=== PATIENT | female | born 1985 | race Caucasian/White ===

== ENCOUNTER 2019-07-25 11:48 | Emergency (ER) | payer BC ==
[2019-07-25 12:00] VITALS: BP 155/90; PULSE 77
[2019-07-25] MEDS ORDERED: Famotidine 20 MG/2 ML SDV IVPUSH ONE (12:25)
[2019-07-25] MEDS ORDERED: Sodium Chloride 0.9% 10 ML Syringe FLUSH PRN (12:25)
[2019-07-25] MEDS ORDERED: diphenhydrAMINE 50 MG/ML SDV IVPUSH ONE (12:25)
[2019-07-25] MEDS ORDERED: Sodium Chloride 0.9% 1,000 ML IV ONE (12:25)
[2019-07-25] MEDS ORDERED: methylPREDNISolone Sodium Succinate 125 MG/2 ML SDV IVPUSH ONE (12:25)
--- NOTE | 2019-07-25 12:47 | EDM.PDOC ---
<JacklynJaylyn acuna - Last Filed: 07/25/19 12:41> ED HPI GENERAL MEDICAL PROBLEM - General Chief Complaint: Allergic Reaction Stated Complaint: ALLERGIC REACTION Time Seen by Provider: 07/25/19 12:24 Source of Information: Reports: Patient History Limitations: Reports: No Limitations - History of Present Illness INITIAL COMMENTS - FREE TEXT/NARRATIVE: Ayala is a pleasant 34 year old female who presents to the ED following an episode of anaphylactic shock in which her epinephrine autoinjector was given. Patient reports she was getting her bridge checked at her dentist when she started becoming short of breathing and experiencing dyspnea. She has a known allergy to latex and states that her dentist uses latex gloves. She was given her epi pen by the dental staff and also took 50 mg of diphenhydramine PO. On arrival at the ED her she had no airway restrictions, her only complaints being severe itching and hives. She does have an extensive allergy list and states she used to have anaphylactic reactions quite frequently but it has been 2-3 years since she has experienced one. 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 (see below) (epinephrine autoinjector, benadryl PO ) - Related Data Allergies Allergy/AdvReac Type Severity Reaction Status Date / Time amoxicillin Allergy Anaphylactic Verified 07/25/19 12:00 Shock banana Allergy Facial Verified 07/25/19 12:00 Swelling clarithromycin [From Biaxin] Allergy Anaphylactic Verified 07/25/19 12:00 Shock kiwi Allergy Itching Verified 07/25/19 12:00 latex Allergy Rash Verified 07/25/19 12:00 rainer Allergy Rash Verified 07/25/19 12:00 melon Allergy Rash Verified 07/25/19 12:00 minocycline [Minocycline] Allergy Anaphylactic Verified 07/25/19 12:00 Shock NSAIDS (Non-Steroidal Allergy Anaphylactic Verified 07/25/19 12:00 Anti-Inflamma Shock peanut Allergy Anaphylactic Verified 07/25/19 12:00 Shock Penicillins Allergy Anaphylactic Verified 07/25/19 12:00 Shock Sulfa (Sulfonamide Allergy Anaphylactic Verified 07/25/19 12:00 Antibiotics) Shock Home Meds: Home Meds Cetirizine [ZyrTEC] 10 mg PO DAILY PRN 03/17/14 [History] Montelukast [Singulair] 10 mg PO BEDTIME 03/17/14 [History] Albuterol [Ventolin HFA] 2 puff INH Q4H PRN 10/07/14 [History] EPINEPHrine [Epipen] 0.3 mg IM ASDIRECTED PRN 10/07/14 [History] Fluticasone/Salmeterol [Advair 250-50] 1 puff INH BID 10/07/14 [History] Multivitamin with Minerals [Multiple Vitamin] 1 tab PO DAILY 06/18/15 [History] Dexlansoprazole [Dexilant] 1 tab PO DAILY 08/17/16 [History] Acetaminophen [Tylenol] 2 tab PO Q4H PRN 11/05/16 [History] Ranitidine HCl [Zantac 75] 1 tab PO DAILY PRN 11/05/16 [History] diphenhydrAMINE [Benadryl] 25 mg PO TID PRN 11/05/16 [History] Acetaminophen/oxyCODONE [Percocet 325-5 MG] 1 tab PO Q4H #20 tablet 11/09/16 [Rx ] predniSONE [Prednisone] 20 mg PO ASDIRECTED #15 tablet 07/25/19 [Rx] Past Medical History HEENT History: Reports: Allergic Rhinitis Other HEENT History: wears glasses Cardiovascular History: Reports: None Respiratory History: Reports: Asthma Other Respiratory History: allergy induced Gastrointestinal History: Reports: GERD Other Gastrointestinal History: ABdominal pain, bloating, indigestion, "if med not taken in a.m. 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: , Other (See Below) Musculoskeletal History: Reports: Arthritis Other Musculoskeletal History: hands, right knee Neurological History: Reports: Other (See Below) Other Neuro History: hx of motion sickness Psychiatric History: Reports: Anxiety, Depression Endocrine/Metabolic History: Reports: Obesity/BMI 30+ Hematologic History: Reports: None Immunologic History: Reports: None Oncologic (Cancer) History: Reports: None Dermatologic History: Reports: Other (See Below) (allergic dermatitis) Other Dermatologic History: acne - Past Surgical History Head Surgeries/Procedures: Reports: None HEENT Surgical History: Reports: Oral Surgery Cardiovascular Surgical History: Reports: None Respiratory Surgical History: Reports: None GI Surgical History: Reports: EGD Female Surgical History: Reports: Section, Tubal Ligation Endocrine Surgical History: Reports: None Musculoskeletal Surgical History: Reports: Knee Replacement, Other (See Below) Social & Family History - Tobacco Use Smoking Status *Q: Never Smoker - Recreational Drug Use Recreational Drug Use: No ED ROS ALLERGIC REACTION - Review of Systems Review Of Systems: See Below Constitutional: Reports: No Symptoms HEENT: Reports: No Symptoms Respiratory: Reports: No Symptoms Cardiovascular: Reports: No Symptoms Endocrine: Reports: No Symptoms GI/Abdominal: Reports: No Symptoms : Reports: No Symptoms Musculoskeletal: Reports: No Symptoms Skin: Reports: Urticaria, Other (excoriations ) Neurological: Reports: No Symptoms Psychiatric: Reports: No Symptoms Hematologic/Lymphatic: Reports: No Symptoms Immunologic: Reports: Anaphylaxis ED EXAM GENERAL NO PERIP PULSE - Physical Exam Exam Limited By: No Limitations General Appearance: Alert, WD/WN, No Apparent Distress Ears: Normal External Exam, Normal Canal, Hearing Grossly Normal, Normal TMs Nose: Normal Inspection, Normal Mucosa, No Blood Throat/Mouth: Normal Inspection, Normal Lips, Normal Teeth, Normal Gums, Normal Oropharynx, Normal Voice, No Airway Compromise Head: Atraumatic, Normocephalic Neck: Normal Inspection, Supple, Non-Tender, Full Range of Motion Respiratory/Chest: No Respiratory Distress, Lungs Clear, Normal Breath Sounds, No Accessory Muscle Use, Chest Non-Tender Cardiovascular: Normal Peripheral Pulses, Regular Rate, Rhythm, No Edema, No Gallop, No JVD, No Murmur, No Rub GI/Abdominal: Normal Bowel Sounds, Soft, Non-Tender, No Organomegaly, No Distention, No Abnormal Bruit, No Mass Back Exam: Normal Inspection, Full Range of Motion, NT Extremities: Normal Inspection, Normal Range of Motion, Non-Tender, No Pedal Edema, Normal Capillary Refill, Other (urticaria ) Neurological: Alert, Oriented, CN II-XII Intact, Normal Cognition, Normal Gait, Normal Reflexes, No Motor/Sensory Deficits Psychiatric: Normal Affect, Normal Mood Skin Exam: Warm, Dry, Rash (maculopapular rash on trunk, bilateral arms and legs , pruritis, excoriations ) Course - Vital Signs Last Recorded V/S: Last Vital Signs Temp 98.1 F 07/25/19 11:58 Pulse 77 07/25/19 11:58 Resp 16 07/25/19 11:58 BP 155/90 H 07/25/19 11:58 Pulse Ox 99 07/25/19 11:58 - Orders/Labs/Meds Orders: Active Orders 24 hr Category Date Time Status Peripheral IV Care [RC] . DIRECTED Care 07/25/19 12:25 Active Peripheral IV Insertion Adult [OM.PC] Stat Oth 07/25/19 12:25 Ordered Meds: Medications Discontinued Medications Generic Name Dose Route Start Last Admin Trade Name Freq PRN Reason Stop Dose Admin Diphenhydramine HCl 50 mg 07/25/19 12:25 07/25/19 12:41 Benadryl IVPUSH 07/25/19 12:26 50 mg ONETIME ONE Administration Famotidine 20 mg 07/25/19 12:25 07/25/19 12:44 Pepcid IVPUSH 07/25/19 12:26 20 mg ONETIME ONE Administration Sodium Chloride 1,000 mls @ 500 mls/hr 07/25/19 12:25 07/25/19 12:41 Normal Saline IV 07/25/19 14:24 500 mls/hr ONETIME ONE Administration Methylprednisolone Sodium Succinate 125 mg 07/25/19 12:25 07/25/19 12:47 Solu-Medrol IVPUSH 07/25/19 12:26 125 mg ONETIME ONE Administration Sodium Chloride 10 ml 07/25/19 12:25 07/25/19 12:46 Saline Flush FLUSH 10 ml ASDIRECTED PRN Administration Keep Vein Open Departure - Departure Disposition: Home, Self-Care 01 Clinical Impression: Allergic reaction to latex Qualifiers: Encounter type: initial encounter Injury intent: accidental or unintentional Qualified Code(s): T65.811A - Toxic effect of latex, accidental (unintentional) , initial encounter - Discharge Information Prescriptions: predniSONE [Prednisone] 20 mg PO ASDIRECTED #15 tablet Instructions: Anaphylactic Reaction, Adult Referrals: PCP,None [Primary Care Provider] - Forms: ED Department Discharge Additional Instructions: You were evaluated in the ER today for your allergic reaction. You were given IV fluids, IV Benadryl, IV steroids, and PO Pepcid for management. This did seem to help relieve most your symptoms. You will be sent home on a burst of prednisone, please take as directed, recommend that you take Benadryl every 4 hours for the next day or so, you may continue to take your Protonix as previously directed, or may take Pepcid for the next couple days to help relief of symptoms as well. Please return to the ED if your symptoms change or worsen - My Orders Last 24 Hours: My Active Orders 07/25/19 12:25 Peripheral IV Care [RC] . DIRECTED Peripheral IV Insertion Adult [OM.PC] Stat - Assessment/Plan Last 24 Hours: My Active Orders 07/25/19 12:25 Peripheral IV Care [RC] . DIRECTED Peripheral IV Insertion Adult [OM.PC] Stat <Florina Solorio - Last Filed: 07/25/19 21:34> ED HPI GENERAL MEDICAL PROBLEM - History of Present Illness INITIAL COMMENTS - FREE TEXT/NARRATIVE: I have read and reviewed the student's HPI and examined the patient and agree with HERNÁN Chavez-student. ED EXAM GENERAL NO PERIP PULSE - Physical Exam Exam: See Below Course - Re-Assessments/Exams Free Text/Narrative Re-Assessment/Exam: 07/25/19 12:32 Patient presents to the ED for the evaluation of an allergic reaction. Did order IV to be placed, with some IV fluids, 50 mg Benadryl, 20mg Pepcid IV, and 125 mg of Solu-Medrol. 07/25/19 14:10 Patient was reassessed at bedside, and states that she is feeling better, not as itchy. The hives have lessened in nature. We'll get her home on a burst of prednisone, Benadryl for the next few days, and have her follow-up with her primary care physician sometime next week. Departure - Departure Time of Disposition: 14:11 Condition: Fair - Discharge Information *PRESCRIPTION DRUG MONITORING PROGRAM REVIEWED*: No *COPY OF PRESCRIPTION DRUG MONITORING REPORT IN PATIENT ZAC: No
== END 2019-07-25 14:30 | disposition home or self-care (01) ==
LOC: JD.ED 11:48
DX: T65.811A Toxic effect of latex, accidental (unintentional), initial encounter (principal); R06.02 Shortness of breath; J45.909 Unspecified asthma, uncomplicated; K21.9 Gastro-esophageal reflux disease without esophagitis; E66.9 Obesity, unspecified; Z88.1 Allergy status to other antibiotic agents; Z91.018 Allergy to other foods; Z91.040 Latex allergy status; Z88.0 Allergy status to penicillin; Z88.6 Allergy status to analgesic agent; Z88.2 Allergy status to sulfonamides; Z79.51 Long term (current) use of inhaled steroids; Z79.899 Other long term (current) drug therapy; Z68.34 Body mass index [BMI] 34.0-34.9, adult
CPT/HCPCS: 96361; 96374; 96375; 99284; J1200; J2930; J3490; J7040

== ENCOUNTER 2021-03-06 13:10 | Emergency (ER) | payer BC ==
[2021-03-06 13:30] VITALS: BP 151/96; PULSE 78
--- NOTE | 2021-03-06 14:30 | CR ---
Chest: Portable view of the chest was obtained. Comparison: Prior chest x-ray of 03/05/21. Slight areas of increased density are seen within the left mid and lower chest. Findings are either stable or have minimally increased from prior exam. Right lung is felt to be clear. Heart size and mediastinum are normal. Bony structures are unremarkable. Impression: 1. Slight density within the left mid and lower chest which is either stable or minimally increased from prior study. 2. Nothing acute is otherwise seen. Diagnostic code #3
--- NOTE | 2021-03-06 14:52 | EDM.PDOC ---
ED HPI GENERAL MEDICAL PROBLEM - General Chief Complaint: Respiratory Problem Stated Complaint: COVID + Time Seen by Provider: 03/06/21 13:19 Source of Information: Reports: Patient History Limitations: Reports: No Limitations, Other (ED vital signs reveal a temp of 98.4, pulse of 78, respiratory rate of 13, blood pressure 151/96, pulse ox 97% on room air.) - History of Present Illness INITIAL COMMENTS - FREE TEXT/NARRATIVE: 35-year-old female presents the emergency department. She states she was diagnosed with Covid at our clinic 2 days ago. She states that she developed s ymptoms of headache and body aches 4 days ago. The symptoms continued however then she also developed cough and shortness of breath, nausea, vomiting and diarrhea. She also has decreased appetite and has lost her sense of taste and smell. She states that she feels that she is vomiting from coughing so hard because she is only able to bring up some mucus. She states she has also had fever and chills. She was diagnosed with Covid at our clinic and was also told at that time she does have pneumonia. She states she has been taking Tylenol about every 4 hours for the fever and pain. She is unable to take ibuprofen as she states she has anaphylactic reaction to this. She states she is otherwise healthy and does not take any prescription medications. Her primary care provider is Marlo Corrigan. She does admit to vaping and she quit smoking about 2 years ago. Left Chest Pain Score (Numeric/FACES): 6 - Related Data Allergies Allergy/AdvReac Type Severity Reaction Status Date / Time amoxicillin Allergy Anaphylactic Verified 03/06/21 13:20 Shock banana Allergy Facial Verified 03/06/21 13:20 Swelling clarithromycin [From Biaxin] Allergy Anaphylactic Verified 03/06/21 13:20 Shock kiwi Allergy Itching Verified 03/06/21 13:20 latex Allergy Rash Verified 03/06/21 13:20 rainer Allergy Rash Verified 03/06/21 13:20 melon Allergy Rash Verified 03/06/21 13:20 minocycline [Minocycline] Allergy Anaphylactic Verified 03/06/21 13:20 Shock NSAIDS (Non-Steroidal Allergy Anaphylactic Verified 03/06/21 13:20 Anti-Inflamma Shock peanut Allergy Anaphylactic Verified 03/06/21 13:20 Shock Penicillins Allergy Anaphylactic Verified 07/25/19 12:00 Shock Sulfa (Sulfonamide Allergy Anaphylactic Verified 07/25/19 12:00 Antibiotics) Shock Home Meds: Home Meds Cetirizine [ZyrTEC] 10 mg PO DAILY PRN 03/17/14 [History] Montelukast [Singulair] 10 mg PO BEDTIME 03/17/14 [History] Albuterol [Ventolin HFA] 2 puff INH Q4H PRN 10/07/14 [History] EPINEPHrine [Epipen] 0.3 mg IM ASDIRECTED PRN 10/07/14 [History] Fluticasone/Salmeterol [Advair 250-50] 1 puff INH BID 10/07/14 [History] Multivitamin with Minerals [Multiple Vitamin] 1 tab PO DAILY 06/18/15 [History] Acetaminophen [Tylenol] 2 tab PO Q4H PRN 11/05/16 [History] diphenhydrAMINE [Benadryl] 25 mg PO TID PRN 11/05/16 [History] Past Medical History HEENT History: Reports: Allergic Rhinitis Other HEENT History: wears glasses Cardiovascular History: Reports: None Respiratory History: Reports: Asthma Other Respiratory History: allergy induced Gastrointestinal History: Reports: GERD Other Gastrointestinal History: ABdominal pain, bloating, indigestion, "if med not taken in a.m. stomach capellan" Genitourinary History: Reports: None MAILMASTER History: Reports: , Other (See Below) Musculoskeletal History: Reports: Arthritis Other Musculoskeletal History: hands, right knee Neurological History: Reports: Other (See Below) Other Neuro History: hx of motion sickness Psychiatric History: Reports: Anxiety, Depression Endocrine/Metabolic History: Reports: Obesity/BMI 30+ Hematologic History: Reports: None Immunologic History: Reports: None Oncologic (Cancer) History: Reports: None Dermatologic History: Reports: Other (See Below) Other Dermatologic History: acne - Past Surgical History Head Surgeries/Procedures: Reports: None HEENT Surgical History: Reports: Oral Surgery Cardiovascular Surgical History: Reports: None Respiratory Surgical History: Reports: None GI Surgical History: Reports: EGD Female Surgical History: Reports: Section, Tubal Ligation Other Female Surgeries/Procedures: x 2 Endocrine Surgical History: Reports: None Neurological Surgical History: Reports: None Musculoskeletal Surgical History: Reports: Knee Replacement, Other (See Below) Other Musculoskeletal Surgeries/Procedures:: right [place] Oncologic Surgical History: Reports: None Dermatological Surgical History: Reports: None Social & Family History - Tobacco Use Tobacco Use Status *Q: Former Tobacco User Used Tobacco, but Quit: Yes Month/Year Tobacco Last Used: 2019 - Caffeine Use Caffeine Use: Reports: None - Recreational Drug Use Recreational Drug Use: No ED ROS GENERAL - Review of Systems Review Of Systems: Comprehensive ROS is negative, except as noted in HPI. ED EXAM, GENERAL - Physical Exam Exam: See Below Exam Limited By: No Limitations General Appearance: Alert, WD/WN, No Apparent Distress Ears: Normal External Exam, Hearing Grossly Normal Nose: Normal Inspection Throat/Mouth: Normal Inspection, Normal Lips, Normal Voice, No Airway Compromise Head: Atraumatic Neck: Normal Inspection, Supple Respiratory/Chest: No Respiratory Distress, Lungs Clear, Normal Breath Sounds, No Accessory Muscle Use, Chest Non-Tender Cardiovascular: Normal Peripheral Pulses, Regular Rate, Rhythm, No Edema, No Murmur Peripheral Pulses: 2+: Radial (L), Radial (R) GI/Abdominal: Normal Bowel Sounds, Soft, Non-Tender, No Distention (Female) Exam: Deferred Rectal (Female) Exam: Deferred Back Exam: Normal Inspection Extremities: Normal Inspection, Normal Range of Motion, No Pedal Edema, Normal Capillary Refill Neurological: Alert, Oriented, Normal Cognition Psychiatric: Normal Affect Skin Exam: Warm, Dry, Intact, Normal Color, No Rash Lymphatic: No Adenopathy #1 Interpretation EKG Date: 03/06/21 Time: 14:21 Rhythm: NSR Rate (Beats/Min): 67 [place]: Normal P-Wave: Present QRS: Normal ST-T: Normal QT: Normal Comparison: NA - No Prior EKG EKG Interpretation Comments: Per Dr. Goodwin interpretation: Sinus rhythm at 67 bpm; early R wave transition [id number] septal hypertrophy.; Decreased voltage limb leads Course - Vital Signs Text/Narrative:: Patient presents with complaints of Covid symptoms. States she was diagnosed 2 days ago at her clinic and also had a chest x-ray which she states showed pneumonia. She developed her symptoms approximately 4 days ago. Chief complaint is shortness of breath and cough. I have ordered a repeat chest x-ray and labs. Last Recorded V/S: Last Vital Signs Temp 98.4 F 03/06/21 13:25 Pulse 78 03/06/21 13:25 Resp 13 03/06/21 13:25 BP 151/96 H 03/06/21 13:25 Pulse Ox 97 03/06/21 13:25 - Orders/Labs/Meds Orders: Active Orders 24 hr Category Date Time Status EKG Documentation Completion [RC] STAT Care 03/06/21 13:48 Active Nurse Communication: Isolation [RC] ASDIRECTED Care 03/06/21 13:48 Active Vital Signs [RC] Q15M Care 03/06/21 16:12 Active EPINEPHrine [Adrenalin] Med 03/06/21 16:12 Active 0.3 mg IM ONETIME PRN Famotidine [Pepcid] Med 03/06/21 16:12 Active 20 mg IVPUSH ONETIME PRN Sodium Chloride 0.9% [Saline Flush] Med 03/06/21 16:15 Active 30 ml FLUSH ASDIRECTED diphenhydrAMINE [Benadryl] Med 03/06/21 16:12 Active 50 mg IVPUSH ONETIME PRN methylPREDNISolone Sod Succ [Solu-MEDROL] Med 03/06/21 16:12 Active 125 mg IVPUSH ONETIME PRN Isolation [COMM] Stat Oth 03/06/21 13:48 Ordered Medication Orders Diphenhydramine HCl (Diphenhydramine 50 Mg/Ml Sdv) 50 mg IVPUSH ONETIME PRN PRN Reason: hypersensitivity reaction Epinephrine HCl (Epinephrine 1 Mg/Ml Sdv) 0.3 mg IM ONETIME PRN PRN Reason: hypersensitivity reaction Famotidine (Famotidine 20 Mg/2 Ml Sdv) 20 mg IVPUSH ONETIME PRN PRN Reason: hypersensitivity reaction Methylprednisolone Sodium Succinate (Methylprednisolone Sodium Succinate 125 Mg/2 Ml Sdv) 125 mg IVPUSH ONETIME PRN PRN Reason: hypersensitivity reaction Sodium Chloride (Sodium Chloride 0.9% 10 Ml Syringe) 30 ml FLUSH ASDIRECTED [facility] Labs: Laboratory Tests 03/06/21 03/06/21 03/06/21 Range/Units 14:12 14:12 14:12 WBC (3.98-10.04) K/mm3 RBC (3.98-5.22) M/mm3 Hgb (11.2-15.7) gm/dl Hct (34.1-44.9) % MCV (79.4-94.8) fl MCH (25.6-32.2) pg MCHC (32.2-35.5) g/dl RDW Std Deviation (36.4-46.3) fL Plt Count (182-369) K/mm3 MPV (9.4-12.3) fl Neut % (Auto) (34.0-71.1) % Lymph % (Auto) (19.3-51.7) % [place] % (Auto) (4.7-12.5) % Eos % (Auto) (0.7-5.8) Baso % (Auto) (0.1-1.2) % Neut # (Auto) (1.56-6.13) K/mm3 Lymph # (Auto) (1.18-3.74) K/mm3 [place] # (Auto) (0.24-0.36) K/mm3 Eos # (Auto) (0.04-0.36) K/mm3 Baso # (Auto) (0.01-0.08) K/mm3 Manual Slide Review PT 10.3 (9.7-12.0) SECONDS INR 0.96 APTT 27.7 (21.7-31.4) SECONDS D-Dimer, Quantitative < 0.19 L (0.19-0.50) mg/L Sodium 141 (136-145) mEq/L Potassium 3.7 (3.5-5.1) mEq/L Chloride 103 (98-107) mEq/L Carbon Dioxide 25 (21-32) mEq/L Anion Gap 16.7 H (5-15) BUN 7 (7-18) mg/dL Creatinine 0.7 (0.55-1.02) mg/dL Est Cr Clr Drug Dosing 79.80 mL/min Estimated GFR (MDRD) > 60 (>60) mL/min BUN/Creatinine Ratio 10.0 L (14-18) Glucose 83 (70-99) mg/dL Lactic Acid (0.4-2.0) mmol/L Calcium 9.7 (8.5-10.1) mg/dL Magnesium 1.9 (1.8-2.4) mg/dL Ferritin 128 (8-252) ng/ml Total Bilirubin 0.4 (0.2-1.0) mg/dL AST 21 (15-37) U/L ALT 23 (14-59) U/L Alkaline Phosphatase 26 L (46-116) U/L Lactate Dehydrogenase 131 (81-234) U/L C-Reactive Protein 2.6 H* (<1.0) mg/dL Total Protein 7.6 (6.4-8.2) g/dl Albumin 3.6 (3.4-5.0) g/dl Globulin 4.0 gm/dL Albumin/Globulin Ratio 0.9 L (1-2) 03/06/21 03/06/21 Range/Units 14:12 14:12 WBC 6.02 (3.98-10.04) K/mm3 RBC 4.53 (3.98-5.22) M/mm3 Hgb 13.4 (11.2-15.7) gm/dl Hct 40.0 (34.1-44.9) % MCV 88.3 (79.4-94.8) fl MCH 29.6 (25.6-32.2) pg MCHC 33.5 (32.2-35.5) g/dl RDW Std Deviation 38.8 (36.4-46.3) fL Plt Count 295 (182-369) K/mm3 MPV 10.2 (9.4-12.3) fl Neut % (Auto) 51.8 (34.0-71.1) % Lymph % (Auto) 38.4 (19.3-51.7) % [place] % (Auto) 5.6 (4.7-12.5) % Eos % (Auto) 3.7 (0.7-5.8) Baso % (Auto) 0.3 (0.1-1.2) % Neut # (Auto) 3.12 (1.56-6.13) K/mm3 Lymph # (Auto) 2.31 (1.18-3.74) K/mm3 [place] # (Auto) 0.34 (0.24-0.36) K/mm3 Eos # (Auto) 0.22 (0.04-0.36) K/mm3 Baso # (Auto) 0.02 (0.01-0.08) K/mm3 Manual Slide Review PT (9.7-12.0) SECONDS INR APTT (21.7-31.4) SECONDS D-Dimer, Quantitative (0.19-0.50) mg/L Sodium (136-145) mEq/L Potassium (3.5-5.1) mEq/L Chloride (98-107) mEq/L Carbon Dioxide (21-32) mEq/L Anion Gap (5-15) BUN (7-18) mg/dL Creatinine (0.55-1.02) mg/dL Est Cr Clr Drug Dosing mL/min Estimated GFR (MDRD) (>60) mL/min BUN/Creatinine Ratio (14-18) Glucose (70-99) mg/dL Lactic Acid 1.0 (0.4-2.0) mmol/L Calcium (8.5-10.1) mg/dL Magnesium (1.8-2.4) mg/dL Ferritin (8-252) ng/ml Total Bilirubin (0.2-1.0) mg/dL AST (15-37) U/L ALT (14-59) U/L Alkaline Phosphatase (46-116) U/L Lactate Dehydrogenase (81-234) U/L C-Reactive Protein (<1.0) mg/dL Total Protein (6.4-8.2) g/dl Albumin (3.4-5.0) g/dl Globulin gm/dL Albumin/Globulin Ratio (1-2) Meds: Medications Generic Name Dose Route Start Last Admin Trade Name Freq PRN Reason Stop Dose Admin Diphenhydramine HCl 50 mg 03/06/21 16:12 Diphenhydramine 50 Mg/Ml Sdv IVPUSH ONETIME PRN hypersensitivity reaction Epinephrine HCl 0.3 mg 03/06/21 16:12 Epinephrine 1 Mg/Ml Sdv IM ONETIME PRN hypersensitivity reaction Famotidine 20 mg 03/06/21 16:12 Famotidine 20 Mg/2 Ml Sdv IVPUSH ONETIME PRN hypersensitivity reaction Methylprednisolone Sodium Succinate 125 mg 03/06/21 16:12 Methylprednisolone Sodium Succinate 125 Mg/2 Ml Sdv IVPUSH ONETIME PRN hypersensitivity reaction Sodium Chloride 30 ml 03/06/21 16:15 Sodium Chloride 0.9% 10 Ml Syringe FLUSH ASDIRECTED YASMINE Discontinued Medications Generic Name Dose Route Start Last Admin Trade Name Freq PRN Reason Stop Dose Admin Bamlanivimab 700 mg/ 310 mls @ 310 mls/hr 03/06/21 16:12 03/06/21 16:43 Etesevimab 1,400 mg/ Sodium IV 03/06/21 17:11 310 mls/hr Chloride ONETIME ONE Administration - Re-Assessments/Exams Free Text/Narrative Re-Assessment/Exam: 03/06/21 15:00 Radiologist impression portable view of the chest: Slight areas of increased density are seen within the left mid and lower chest. Findings are either stable or have minimally increased from prior exam. Right lung is felt to be clear. Heart size and mediastinum are normal. Bony structures are unremarkable. 03/06/21 16:00 Hematology reveals a WBC of 6.02, hemoglobin 13.4, hematocrit 40.0, platelet count 295, pro time 10.3, INR 0.96, D-dimer less than 0.19, sodium is 141, potassium 3.7, anion gap 16.7, BUN 7, creatinine 0.7, GFR greater than 60, glucose 83, lactic acid 1.0, magnesium 1.9, ferritin 128, total bilirubin 0.4, AST 21, ALT 23, alk phos 26, LDH 131, C-reactive protein 2.6 03/06/21 16:04 The patient does have a BMI of 39 so she does qualify for monoclonal antibodies. I spoke with the patient to provide information about bamlanivimab treatment for the patient. I offered her the patient caregiver IVONNE Lopezmad back sheet to read and review. I stated the drug has been approved by an emergency use authorization process and not fully been FDA reviewed or approved. The patient meets the EUA requirements. I discussed there are other potential treatment options that are currently not FDA approved to treat COVID-19. Offered opportunity to ask questions and all questions were answered. The patient voiced understanding and agreed to proceed with treatment for herself. 03/06/21 18:37 Patient has received the monoclonal antibody treatment. She tolerated the infusion well. She has been monitored for approximately 1 hour after the infusion and has had no adverse effects. She will be discharged home. Departure - Departure Time of Disposition: 18:38 Disposition: Home, Self-Care 01 Condition: Good Clinical Impression: COVID-19 - Discharge Information Instructions: What You Should Know About COVID-19 to Protect Yourself and Others - CDC, 10 Things You Can Do to Manage Your COVID-19 Symptoms at Home - CDC, Prevent the Spread of COVID-19 if You Are Sick - [facility] Referrals: Marlo Corrigan PA-C [Primary Care Provider] - Forms: ED Department Discharge Additional Instructions: You were seen in the emergency department today due to Covid symptoms. Labs and a chest x-ray were completed. Chest x-ray does show a pneumonia however it is stable at this time. Your vital signs were stable and your oxygen levels were 97 to 98%. You did qualify for monoclonal antibody treatment and received that while you were here. You are monitored for approximately an hour after and did not have any adverse effects to this. You likely will still feel the symptoms of Covid however they should be shortened in severity and duration. Go home and drink plenty of fluids such as Pedialyte, Gatorade or Powerade. Rest. May take Tylenol every 4 hours as needed for fever or general body aches. Should your condition worsen or change, do not hesitate returning to the emergency department. Sepsis Event Note (ED) - Evaluation Sepsis Screening Result: No Definite Risk - Focused Exam Vital Signs: Vital Signs Temp Pulse Resp BP Pulse Ox 03/06/21 13:25 98.4 F 78 13 151/96 H 97 - My Orders Last 24 Hours: My Active Orders 03/06/21 13:48 EKG Documentation Completion [RC] STAT Nurse Communication: Isolation [RC] ASDIRECTED Isolation [COMM] Stat 03/06/21 16:12 Vital Signs [RC] Q15M EPINEPHrine [Adrenalin] 0.3 mg IM ONETIME PRN Famotidine [Pepcid] 20 mg IVPUSH ONETIME PRN diphenhydrAMINE [Benadryl] 50 mg IVPUSH ONETIME PRN methylPREDNISolone Sod Succ [Solu-MEDROL] 125 mg IVPUSH ONETIME PRN 03/06/21 16:15 Sodium Chloride 0.9% [Saline Flush] 30 ml FLUSH ASDIRECTED - Assessment/Plan Last 24 Hours: My Active Orders 03/06/21 13:48 EKG Documentation Completion [RC] STAT Nurse Communication: Isolation [RC] ASDIRECTED Isolation [COMM] Stat 03/06/21 16:12 Vital Signs [RC] Q15M EPINEPHrine [Adrenalin] 0.3 mg IM ONETIME PRN Famotidine [Pepcid] 20 mg IVPUSH ONETIME PRN diphenhydrAMINE [Benadryl] 50 mg IVPUSH ONETIME PRN methylPREDNISolone Sod Succ [Solu-MEDROL] 125 mg IVPUSH ONETIME PRN 03/06/21 16:15 Sodium Chloride 0.9% [Saline Flush] 30 ml FLUSH ASDIRECTED
[2021-03-06] MEDS ORDERED: Famotidine 20 MG/2 ML SDV IVPUSH PRN (16:12)
[2021-03-06] MEDS ORDERED: diphenhydrAMINE 50 MG/ML SDV IVPUSH PRN (16:12)
[2021-03-06] MEDS ORDERED: EPINEPHrine 1 MG/ML SDV IM PRN (16:12)
[2021-03-06] MEDS ORDERED: methylPREDNISolone Sodium Succinate 125 MG/2 ML SDV IVPUSH PRN (16:12)
[2021-03-06] MEDS ORDERED: Sodium Chloride 0.9% 10 ML Syringe FLUSH SCH (16:15)
== END 2021-03-06 19:05 | disposition home or self-care (01) ==
LOC: JD.ED 13:10
DX: U07.1 COVID-19 (principal); E66.9 Obesity, unspecified; J45.909 Unspecified asthma, uncomplicated; Z88.0 Allergy status to penicillin; Z88.2 Allergy status to sulfonamides; Z91.010 Allergy to peanuts; Z91.040 Latex allergy status; Z91.018 Allergy to other foods; Z87.891 Personal history of nicotine dependence; Z68.39 Body mass index [BMI] 39.0-39.9, adult
CPT/HCPCS: 36415; 71045; 80053; 82728; 83605; 83615; 83735; 85025; 85379; 85610; 85730; 86140; 93005; 99285; J7050; M0245; Q0245; 93010; 99284

== ENCOUNTER 2021-04-04 15:18 | Emergency (ER) | payer BC ==
[2021-04-04 15:30] VITALS: BP 140/92; PULSE 96
[2021-04-04] MEDS ORDERED: EPINEPHrine 1 MG/ML SDV IM PRN (16:31)
[2021-04-04] MEDS ORDERED: Famotidine 20 MG/2 ML SDV IVPUSH PRN (16:33)
[2021-04-04] MEDS ORDERED: methylPREDNISolone Sodium Succinate 125 MG/2 ML SDV IVPUSH PRN (16:33)
[2021-04-04] MEDS ORDERED: diphenhydrAMINE 50 MG/ML SDV IVPUSH PRN (16:34)
[2021-04-04] MEDS ORDERED: Iopamidol 755 Mg/ML 100 ML Bottle IVPUSH ONE (16:38)
[2021-04-04] MEDS ORDERED: Sodium Chloride 0.9% 100 ML IV SCH (16:45)
[2021-04-04] MEDS ORDERED: Sodium Chloride 0.9% 10 ML Syringe FLUSH SCH (16:45)
--- NOTE | 2021-04-04 17:33 | CT ---
CT chest Technique: Multiple axial sections through the chest were obtained. Intravenous contrast was utilized. Reconstructed coronal and sagittal images were obtained. Study was performed as a pulmonary angiogram protocol. Comparison: Prior chest x-ray of 03/06/21. Findings: Pulmonary arteries are less than optimally opacified for pulmonary embolism. No findings of pulmonary embolism within the main or segmental branches. Smaller subsegmental pulmonary emboli could be missed. Thoracic aorta shows no aneurysm. Mediastinum and hilar regions show no adenopathy. No axillary adenopathy is seen. Lung window settings were reviewed. No acute parenchymal change is seen within either lung field. Visualized upper abdominal structures show nothing acute. Bone window settings were reviewed which show no acute osseous abnormality. Impression: 1. Less than optimal opacification of the pulmonary arteries. No findings of pulmonary embolism within the main or segmental branches. Other more distal pulmonary emboli could easily be missed. 2. No acute abnormality is otherwise seen on CT study of the chest. Diagnostic code #2
[2021-04-04] MEDS ORDERED: Famotidine 20 MG/2 ML SDV IVPUSH ONE (17:46)
[2021-04-04] MEDS ORDERED: Sodium Chloride 0.9% 1,000 ML IV STA (17:48)
[2021-04-04] MEDS ORDERED: Famotidine 20 MG/2 ML SDV IVPUSH SCH (18:00)
[2021-04-04] MEDS ORDERED: diphenhydrAMINE 50 MG Cap PO SCH (18:00)
--- NOTE | 2021-04-04 18:28 | EDM.PDOC ---
ED HPI GENERAL MEDICAL PROBLEM - General Chief Complaint: Respiratory Problem Stated Complaint: PNEUMONIA DIFFICULTY BREATHING Time Seen by Provider: 04/04/21 15:35 Source of Information: Reports: Patient, RN Notes Reviewed History Limitations: Reports: No Limitations - History of Present Illness INITIAL COMMENTS - FREE TEXT/NARRATIVE: Patient is a 35-year-old female sent to the emergency department by her primary care provider with concerns of possible reaction to her antibiotics. She reports that she has been having shortness of breath as well as intermittent chest discomfort for the last month, since she was diagnosed with Covid. She was seen in the clinic 2 days ago and tested positive for mycoplasma pneumonia. She does have a history of severe anaphylactic reaction to most types of antibiotics. The only antibiotic that she did not have a known reaction to was a salud quinolone, therefore she was started on Levaquin. She reports that last evening after taking her dose of Levaquin, she developed swelling in her hands which she reports is how all of her other allergic reactions began. She went to bed and upon waking this morning the symptoms had resolved. She denies any rash, throat tightness, swelling, or any other allergic type symptoms. She reports that she is scheduled to have a CT scan of her chest and a brain MRI done next week as she continues to have problems with her memory since having Covid. Chest Pain Score (Numeric/FACES): 5 - Related Data Allergies Allergy/AdvReac Type Severity Reaction Status Date / Time amoxicillin Allergy Anaphylactic Verified 03/06/21 13:20 Shock banana Allergy Facial Verified 03/06/21 13:20 Swelling clarithromycin [From Biaxin] Allergy Anaphylactic Verified 03/06/21 13:20 Shock kiwi Allergy Itching Verified 03/06/21 13:20 latex Allergy Rash Verified 03/06/21 13:20 rainer Allergy Rash Verified 03/06/21 13:20 melon Allergy Rash Verified 03/06/21 13:20 minocycline [Minocycline] Allergy Anaphylactic Verified 03/06/21 13:20 Shock NSAIDS (Non-Steroidal Allergy Anaphylactic Verified 03/06/21 13:20 Anti-Inflamma Shock peanut Allergy Anaphylactic Verified 03/06/21 13:20 Shock Penicillins Allergy Anaphylactic Verified 07/25/19 12:00 Shock Sulfa (Sulfonamide Allergy Anaphylactic Verified 07/25/19 12:00 Antibiotics) Shock Home Meds: Home Meds Cetirizine [ZyrTEC] 10 mg PO DAILY PRN 03/17/14 [History] Montelukast [Singulair] 10 mg PO BEDTIME 03/17/14 [History] Albuterol [Ventolin HFA] 2 puff INH Q4H PRN 10/07/14 [History] EPINEPHrine [Epipen] 0.3 mg IM ASDIRECTED PRN 10/07/14 [History] Fluticasone/Salmeterol [Advair 250-50] 1 puff INH BID 10/07/14 [History] Multivitamin with Minerals [Multiple Vitamin] 1 tab PO DAILY 06/18/15 [History] Acetaminophen [Tylenol] 2 tab PO Q4H PRN 11/05/16 [History] diphenhydrAMINE [Benadryl] 25 mg PO TID PRN 11/05/16 [History] predniSONE [Prednisone] 20 mg PO ASDIRECTED #13 tablet 04/04/21 [Rx] Past Medical History HEENT History: Reports: Allergic Rhinitis Other HEENT History: wears glasses Cardiovascular History: Reports: None Respiratory History: Reports: Asthma Other Respiratory History: allergy induced Gastrointestinal History: Reports: GERD Other Gastrointestinal History: ABdominal pain, bloating, indigestion, "if med not taken in a.m. 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: Musculoskeletal History: Reports: Arthritis Other Musculoskeletal History: hands, right knee Neurological History: Reports: Other (See Below) Other Neuro History: hx of motion sickness Psychiatric History: Reports: Anxiety, Depression Endocrine/Metabolic History: Reports: Obesity/BMI 30+ Hematologic History: Reports: None Immunologic History: Reports: None Oncologic (Cancer) History: Reports: None Dermatologic History: Reports: Other (See Below) Other Dermatologic History: acne - Past Surgical History Head Surgeries/Procedures: Reports: None HEENT Surgical History: Reports: Oral Surgery Cardiovascular Surgical History: Reports: None Respiratory Surgical History: Reports: None GI Surgical History: Reports: EGD Female Surgical History: Reports: Section, Tubal Ligation Other Female Surgeries/Procedures: x 2 Endocrine Surgical History: Reports: None Neurological Surgical History: Reports: None Musculoskeletal Surgical History: Reports: Knee Replacement, Other (See Below) Other Musculoskeletal Surgeries/Procedures:: right [place] Oncologic Surgical History: Reports: None Dermatological Surgical History: Reports: None Social & Family History - Tobacco Use Tobacco Use Status *Q: Current Every Day Tobacco User Years of Tobacco use: 2 Packs/Tins Daily: 0.5 - Caffeine Use Caffeine Use: Reports: None - Recreational Drug Use Recreational Drug Use: No ED ROS GENERAL - Review of Systems Review Of Systems: See Below Constitutional: Reports: Fatigue. Denies: Fever HEENT: Reports: No Symptoms Respiratory: Reports: Shortness of Breath, Pleuritic Chest Pain. Denies: Wheezing, Cough Cardiovascular: Reports: No Symptoms Endocrine: Reports: No Symptoms GI/Abdominal: Reports: No Symptoms : Reports: No Symptoms Musculoskeletal: Reports: No Symptoms Skin: Reports: No Symptoms Neurological: Reports: Other (Difficulty remembering and finding her words since Covid diagnosis) Psychiatric: Reports: No Symptoms Hematologic/Lymphatic: Reports: No Symptoms Immunologic: Reports: No Symptoms ED EXAM, GENERAL - Physical Exam Exam: See Below Exam Limited By: No Limitations General Appearance: Alert, WD/WN, No Apparent Distress Respiratory/Chest: No Respiratory Distress, Lungs Clear, Normal Breath Sounds, No Accessory Muscle Use, Chest Non-Tender Cardiovascular: Normal Peripheral Pulses, Regular Rate, Rhythm, No Edema, No Gallop, No JVD, No Murmur, No Rub Neurological: Alert, Oriented, CN II-XII Intact, Normal Cognition, Normal Gait, Normal Reflexes, No Motor/Sensory Deficits Psychiatric: Normal Affect, Normal Mood Skin Exam: Warm, Dry, Intact, Normal Color, No Rash Course - Vital Signs Last Recorded V/S: Last Vital Signs Temp 98.4 F 04/04/21 15:29 Pulse 96 04/04/21 15:29 Resp 20 04/04/21 15:29 BP 140/92 H 04/04/21 15:29 Pulse Ox 100 04/04/21 15:29 - Orders/Labs/Meds Labs: Laboratory Tests 04/04/21 04/04/21 04/04/21 Range/Units 15:35 15:35 15:35 WBC 9.98 (3.98-10.04) K/mm3 RBC 4.64 (3.98-5.22) M/mm3 Hgb 13.7 (11.2-15.7) gm/dl Hct 41.7 (34.1-44.9) % MCV 89.9 (79.4-94.8) fl MCH 29.5 (25.6-32.2) pg MCHC 32.9 (32.2-35.5) g/dl RDW Std Deviation 44.0 (36.4-46.3) fL Plt Count 273 (182-369) K/mm3 MPV 11.0 (9.4-12.3) fl Neut % (Auto) 81.0 H (34.0-71.1) % Lymph % (Auto) 13.2 L (19.3-51.7) % Ware % (Auto) 5.2 (4.7-12.5) % Eos % (Auto) 0.3 L (0.7-5.8) Baso % (Auto) 0.1 (0.1-1.2) % Neut # (Auto) 8.08 H (1.56-6.13) K/mm3 Lymph # (Auto) 1.32 (1.18-3.74) K/mm3 Ware # (Auto) 0.52 H (0.24-0.36) K/mm3 Eos # (Auto) 0.03 L (0.04-0.36) K/mm3 Baso # (Auto) 0.01 (0.01-0.08) K/mm3 D-Dimer, Quantitative 0.68 H (0.19-0.50) mg/L Sodium 136 (136-145) mEq/L Potassium 3.7 (3.5-5.1) mEq/L Chloride 103 (98-107) mEq/L Carbon Dioxide 21 (21-32) mEq/L Anion Gap 15.7 H (5-15) BUN 20 H (7-18) mg/dL Creatinine 1.2 H (0.55-1.02) mg/dL Est Cr Clr Drug Dosing 55.97 mL/min Estimated GFR (MDRD) 51 (>60) mL/min BUN/Creatinine Ratio 16.7 (14-18) Glucose 143 H (70-99) mg/dL Calcium 9.3 (8.5-10.1) mg/dL Total Bilirubin 0.2 (0.2-1.0) mg/dL AST 16 (15-37) U/L ALT 32 (14-59) U/L Alkaline Phosphatase 36 L (46-116) U/L C-Reactive Protein <0.2 (<1.0) mg/dL Total Protein 7.9 (6.4-8.2) g/dl Albumin 4.1 (3.4-5.0) g/dl Globulin 3.8 gm/dL Albumin/Globulin Ratio 1.1 (1-2) Meds: Medications Discontinued Medications Generic Name Dose Route Start Last Admin Trade Name Freq PRN Reason Stop Dose Admin Diphenhydramine HCl 50 mg 04/04/21 16:34 Diphenhydramine 50 Mg/Ml Sdv IVPUSH ONETIME PRN Shortness of Breath Diphenhydramine HCl 50 mg 04/04/21 18:00 04/04/21 18:42 Diphenhydramine 50 Mg Cap PO Not Given Q12H YASMINE Epinephrine HCl 0.3 mg 04/04/21 16:31 Epinephrine 1 Mg/Ml Sdv IM ONETIME PRN Shortness of Breath Famotidine 20 mg 04/04/21 16:33 Famotidine 20 Mg/2 Ml Sdv IVPUSH ONETIME PRN Shortness of Breath Famotidine 40 mg 04/04/21 17:46 Famotidine 20 Mg/2 Ml Sdv IVPUSH 04/04/21 17:47 BID ONE Famotidine 40 mg 04/04/21 18:00 04/04/21 18:42 Famotidine 20 Mg/2 Ml Sdv IVPUSH 40 mg BID YASMINE Administration Sodium Chloride 100 mls @ 60 mls/hr 04/04/21 16:45 04/04/21 17:18 Normal Saline IV 60 mls/hr ASDIRECTED YASMINE Administration Sodium Chloride 1,000 mls @ 75 mls/hr 04/04/21 17:48 04/04/21 17:58 Normal Saline IV 04/05/21 07:07 75 mls/hr NOW STA Administration Iopamidol 100 ml 04/04/21 16:38 04/04/21 17:18 Iopamidol 755 Mg/Ml 100 Ml Bottle IVPUSH 04/04/21 16:39 100 ml ONETIME ONE Administration Methylprednisolone Sodium Succinate 125 mg 04/04/21 16:33 Methylprednisolone Sodium Succinate 125 Mg/2 Ml Sdv IVPUSH ONETIME PRN Shortness of Breath Prednisone 40 mg 04/04/21 18:29 04/04/21 18:41 Prednisone 20 Mg Tab PO 04/04/21 18:30 40 mg ONETIME ONE Administration Sodium Chloride 10 ml 04/04/21 16:45 04/04/21 17:19 Sodium Chloride 0.9% 10 Ml Syringe FLUSH 10 ml ASDIRECTED YASMINE Administration - Re-Assessments/Exams Free Text/Narrative Re-Assessment/Exam: Patient is a 35-year-old female presenting to the emergency department with concerns of possible allergic reaction to her antibiotic. She was started on Levaquin 2 days ago and has been taking in the evenings. Last evening she developed swelling in her hands after taking her medication. She went to bed and symptoms had resolved by morning. She does have an extensive history of anaphylactic reactions to all antibiotic classes but was not known to be allergic to salud quinolones. Exam is grossly unremarkable. Lung sounds are clear. I have ordered blood work including CBC, CMP, and D-dimer. I will plan to do CT scan of the chest. She does not have a known allergy to CT contrast, however we will await the results of the D-dimer to determine if we do the CT with or without contrast. 04/04/21 1625 D-dimer did come back minimally elevated at 0.68. Based on this, I have ordered CT angiogram of the chest. I have ordered epinephrine, Pepcid, Solu-Medrol, and Benadryl to be on standby should she have an allergic reaction. 04/04/21 18:28 CT angiogram of the chest impression as follows: 1. Less than optimal opacification of the pulmonary arteries. No findings of pulmonary embolism within the main or segmental branches. Other more distal pulmonary emboli could be missed. 2. No acute abnormalities otherwise seen on the CT study the chest. Case was discussed with hospitalist on-call, Dr. Lockwood. 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 Decision was made to stop treatment with Levaquin as swelling in her hands is how all of her other anaphylactic reactions began. I will start her on prednisone 40 mg daily for 5 days followed by 20 mg daily for 5 days and have her stop the tapering prednisone that she is currently on. And also and recommend that she take Pepcid 20 mg twice daily for the next few days as well as Benadryl 50 mg as needed. She does have EpiPen at home should she have any delayed reaction to the Levaquin that she took last evening. Recommend follow-up with her primary care provider to discuss possible referral to pulmonology for ongoing shortness of breath as well as pulmonary function tests. Patient is in agreement with this plan. Discharge instructions as documented. Departure - Departure Time of Disposition: 18:42 Disposition: Home, Self-Care 01 Condition: Good Clinical Impression: Allergic reaction caused by a drug Qualifiers: Encounter type: initial encounter Qualified Code(s): T78.40XA - Allergy, unspecified, initial encounter - Discharge Information *PRESCRIPTION DRUG MONITORING PROGRAM REVIEWED*: No *COPY OF PRESCRIPTION DRUG MONITORING REPORT IN PATIENT ZAC: No Prescriptions: predniSONE [Prednisone] 20 mg PO ASDIRECTED #13 tablet Instructions: Allergies, Adult, [id number] Referrals: Alysa Onofre, SR. STRATEGIC SOURCING MANAGER [Primary Care Provider] - Forms: ED Department Discharge Additional Instructions: You were seen in the emergency department this evening with concerns of allergic reaction to the Levaquin antibiotic which you were started on 2 days ago for treatment of mycoplasma pneumonia. Work-up included blood work and a CT scan of your chest. Results of your CT scan did not show any evidence of blood clots nor did it show any areas of pneumonia in your lungs. The decision was made to stop your Levaquin antibiotic as you are likely allergic to this. Stop the current prednisone prescription that you are on. I have sent another prescription for a slightly higher dose of prednisone tapering. Take this medication as prescribed. He did receive your first dose of prednisone in the emergency department. Recommend that you take Pepcid 20 mg twice daily for the next 5 days. Also, recommend taking Benadryl 50 mg every 8 hours for the next few days. Use your EpiPen at home if needed. Contact your primary care provider tomorrow to discuss this evening's events and ongoing follow-up. Recommendation would be to see pulmonology and have pulmonary function test completed as you are likely suffering from long-haul Covid. If you should experience any new or worsening symptoms, please do not hesitate to return to the emergency department for reevaluation. Sepsis Event Note (ED) - Evaluation Sepsis Screening Result: No Definite Risk
[2021-04-04] MEDS ORDERED: predniSONE 20 MG Tab PO ONE (18:29)
== END 2021-04-04 19:40 | disposition home or self-care (01) ==
LOC: JD.ED 15:18
DX: R07.89 Other chest pain (principal); T36.8X5A Adverse effect of other systemic antibiotics, initial encounter; Z88.0 Allergy status to penicillin; Z91.010 Allergy to peanuts; Z88.2 Allergy status to sulfonamides; Z91.040 Latex allergy status; Z91.018 Allergy to other foods; Z91.048 Other nonmedicinal substance allergy status; E66.9 Obesity, unspecified; Z68.30 Body mass index [BMI] 30.0-30.9, adult; Z72.0 Tobacco use
CPT/HCPCS: 36415; 71275; 80053; 85025; 85379; 86140; 96374; 99284; J3490; J7030; J7512; Q9967

== ENCOUNTER 2021-11-25 13:23 | Emergency (ER) | payer BC ==
[2021-11-25] MEDS: diphenhydrAMINE 50 MG/ML SDV IVPUSH ONE (13:40)
[2021-11-25] MEDS: methylPREDNISolone Sodium Succinate 125 MG/2 ML SDV IVPUSH ONE (13:42)
[2021-11-25] MEDS: Famotidine 20 MG/2 ML SDV IVPUSH ONE (13:48)
[2021-11-25] MEDS: Sodium Chloride 0.9% 10 ML Syringe FLUSH PRN (13:51)
[2021-11-25] MEDS: Sodium Chloride 0.9% 1,000 ML IV ONE (13:51)
[2021-11-25] MEDS: diphenhydrAMINE 50 MG/ML SDV ONE (13:52)
[2021-11-25 14:02] VITALS: PULSE 98
[2021-11-25 15:33] VITALS: BP 133/75
== END 2021-11-25 15:32 | disposition home or self-care (01) ==
LOC: JD.ED 13:23 → SUPCPDRO 13:23 → JD.ED 15:32
DX: T78.1XXA Other adverse food reactions, not elsewhere classified, initial encounter (principal); K21.9 Gastro-esophageal reflux disease without esophagitis; J45.909 Unspecified asthma, uncomplicated; E66.9 Obesity, unspecified; Z68.34 Body mass index [BMI] 34.0-34.9, adult; Z88.0 Allergy status to penicillin; Z91.018 Allergy to other foods; Z88.1 Allergy status to other antibiotic agents; Z91.040 Latex allergy status; Z88.2 Allergy status to sulfonamides; Z91.010 Allergy to peanuts; Z88.5 Allergy status to narcotic agent
CPT/HCPCS: 96374; 96375; 99283; J1200; J2930; J3490; J7030

== ENCOUNTER 2023-06-15 06:58 | Emergency (ER) | payer BC ==
[2023-06-15] MEDS ORDERED: Sodium Chloride 0.9% 10 ML Syringe FLUSH PRN (07:20)
[2023-06-15] MEDS ORDERED: Famotidine 20 MG/2 ML SDV IVPUSH ONE (07:20)
[2023-06-15] MEDS ORDERED: methylPREDNISolone Sodium Succinate 125 MG/2 ML SDV IVPUSH ONE (07:20)
[2023-06-15 09:17] VITALS: BP 134/83; PULSE 78
== END 2023-06-15 09:07 | disposition home or self-care (01) ==
LOC: JD.ED 06:58
DX: T78.40XA Allergy, unspecified, initial encounter (principal); I10 Essential (primary) hypertension; J45.909 Unspecified asthma, uncomplicated; Z86.16 Personal history of COVID-19; Z88.0 Allergy status to penicillin; Z91.018 Allergy to other foods; Z88.5 Allergy status to narcotic agent; Z88.6 Allergy status to analgesic agent; Z88.2 Allergy status to sulfonamides; Z91.010 Allergy to peanuts; Z91.040 Latex allergy status; Z79.899 Other long term (current) drug therapy
CPT/HCPCS: 96374; 96375; 99283; J2930; J3490

== ENCOUNTER 2024-02-18 06:43 | Emergency (ER) | payer BC ==
[2024-02-18] MEDS: diphenhydrAMINE 50 MG/ML SDV IVPUSH ONE (07:27)
[2024-02-18] MEDS: methylPREDNISolone Sodium Succinate 125 MG/2 ML SDV IVPUSH ONE (07:30)
[2024-02-18] MEDS: Sodium Chloride 0.9% 10 ML Syringe FLUSH PRN (07:34)
[2024-02-18 11:46] VITALS: BP 136/95; PULSE 76
[2024-02-21 04:46] LABS: C1 ESTERASE INHIB 32 mg/dL (21-38)
== END 2024-02-18 11:40 | disposition home or self-care (01) ==
LOC: JD.ED 06:43
DX: T78.3XXA Angioneurotic edema, initial encounter (principal); I10 Essential (primary) hypertension; J45.909 Unspecified asthma, uncomplicated; K21.9 Gastro-esophageal reflux disease without esophagitis; E66.9 Obesity, unspecified; F17.210 Nicotine dependence, cigarettes, uncomplicated; Z86.16 Personal history of COVID-19; Z68.28 Body mass index [BMI] 28.0-28.9, adult; Z88.0 Allergy status to penicillin; Z88.1 Allergy status to other antibiotic agents; Z88.2 Allergy status to sulfonamides; Z88.5 Allergy status to narcotic agent; Z91.010 Allergy to peanuts; Z91.018 Allergy to other foods; Z79.899 Other long term (current) drug therapy
CPT/HCPCS: 36415; 86160; 93005; 96374; 96375; 99285; J1200; J2930; J3490; 93010; 99284

== ENCOUNTER 2024-05-16 06:38 | Emergency (ER) | payer BC ==
[2024-05-16 06:48] VITALS: PULSE 88
[2024-05-16] MEDS: Sodium Chloride 0.9% 10 ML Syringe FLUSH PRN (07:22)
[2024-05-16] MEDS: diphenhydrAMINE 50 MG/ML SDV IVPUSH ONE (07:22)
[2024-05-16] MEDS: methylPREDNISolone Sodium Succinate 125 MG/2 ML SDV IVPUSH ONE (07:22)
[2024-05-16 07:44] LABS: BASOPHILS PERCENT AUTO 0.6 % (0.0-1.0); EOSINOPHILS ABSOLUTE AUTO 0.3 K/mm3 (0.0-0.4); EOSINOPHILS PERCENT AUTO 3.7 % (0.0-6.0); HEMATOCRIT 38.5 % (37.0-47.0); HEMOGLOBIN 13.1 gm/dl (12.0-16.0); IMMATURE GRAN ABSOLUTE AUTO 0.02 K/mm3 (0.00-0.05); IMMATURE GRAN PERCENT AUTO 0.3 % (0.0-0.4); LYMPHOCYTES ABSOLUTE AUTO 3.3 K/mm3 (1.0-4.8); LYMPHOCYTES PERCENT AUTO 48.5 % (24.0-44.0); MEAN CORPUSCULAR HEMOGLOBIN 31.2 pg (28.0-32.0); MEAN CORPUSCULAR VOLUME 91.7 fl (83.0-99.0); MEAN PLATELET VOLUME 9.7 fl (9.4-12.3); MONOCYTES ABSOLUTE AUTO 0.5 K/mm3 (0.0-0.8); MONOCYTES PERCENT AUTO 7.4 % (0.0-8.0); NEUTROPHILS ABSOLUTE AUTO 2.7 K/mm3 (1.8-7.7); NEUTROPHILS PERCENT AUTO 39.5 % (41.0-71.0); PLATELET COUNT,PLT 272 K/mm3 (150-400); WHITE BLOOD CELL COUNT,WBC 6.74 K/mm3 (3.9-11.3)
[2024-05-16 07:57] LABS: A/G RATIO 0.9 (1-2); ALBUMIN 3.3 g/dl (3.4-5.0); ANION GAP 17.2 (5-15); BILIRUBIN TOTAL 0.3 mg/dL (0.2-1.0); EST CRCL DRUG DOSING (CG) 64.58 mL/min; POTASSIUM,K 3.2 mEq/L (3.5-5.1); PROTEIN TOTAL,TP 6.8 g/dl (6.4-8.2)
[2024-05-16 10:40] VITALS: BP 144/99
== END 2024-05-16 10:35 | disposition home or self-care (01) ==
LOC: JD.ED 06:38
DX: T78.40XA Allergy, unspecified, initial encounter (principal); Z87.09 Personal history of other diseases of the respiratory system; I10 Essential (primary) hypertension; K21.9 Gastro-esophageal reflux disease without esophagitis; E66.9 Obesity, unspecified; Z88.0 Allergy status to penicillin; Z88.1 Allergy status to other antibiotic agents; Z88.2 Allergy status to sulfonamides; Z88.5 Allergy status to narcotic agent; Z91.018 Allergy to other foods; Z91.040 Latex allergy status; Z88.8 Allergy status to other drugs, medicaments and biological substances; Z86.16 Personal history of COVID-19; Z68.29 Body mass index [BMI] 29.0-29.9, adult
CPT/HCPCS: 36415; 80053; 84703; 85025; 96374; 96375; 99283; J1200; J2919; J3490; 99284

== ENCOUNTER 2024-10-16 07:06 | Emergency (ER) | payer BC ==
[2024-10-16 07:42] LABS: BASOPHILS ABSOLUTE AUTO 0.1 K/mm3 (0.0-0.2); BASOPHILS PERCENT AUTO 0.7 % (0.0-1.0); EOSINOPHILS ABSOLUTE AUTO 0.2 K/mm3 (0.0-0.4); HEMATOCRIT 36.9 % (37.0-47.0); HEMOGLOBIN 12.7 gm/dl (12.0-16.0); IMMATURE GRAN ABSOLUTE AUTO 0.02 K/mm3 (0.00-0.05); IMMATURE GRAN PERCENT AUTO 0.3 % (0.0-0.4); LYMPHOCYTES ABSOLUTE AUTO 2.5 K/mm3 (1.0-4.8); LYMPHOCYTES PERCENT AUTO 34.4 % (24.0-44.0); MEAN CORPUSCULAR HEMOGLOBIN 31.4 pg (28.0-32.0); MEAN CORPUSCULAR HGB CONC 34.4 g/dl (32.0-36.0); MEAN CORPUSCULAR VOLUME 91.1 fl (83.0-99.0); MEAN PLATELET VOLUME 9.5 fl (9.4-12.3); MONOCYTES ABSOLUTE AUTO 0.5 K/mm3 (0.0-0.8); MONOCYTES PERCENT AUTO 7.1 % (0.0-8.0); NEUTROPHILS PERCENT AUTO 54.5 % (41.0-71.0); PLATELET COUNT,PLT 284 K/mm3 (150-400); RED BLOOD CELL COUNT 4.05 M/mm3 (4.10-5.30); WHITE BLOOD CELL COUNT,WBC 7.29 K/mm3 (3.9-11.3)
[2024-10-16] MEDS: Aspirin 81 MG Tab.Chew PO ONE (07:52)
[2024-10-16] MEDS: Ondansetron 4 MG/2 ML SDV IVPUSH ONE (07:53)
[2024-10-16] MEDS: Sodium Chloride 0.9% 10 ML Syringe FLUSH PRN (07:55)
[2024-10-16 08:08] LABS: A/G RATIO 0.9 (1-2); ALBUMIN 3.2 g/dl (3.4-5.0); ANION GAP 15.3 (5-15); BILIRUBIN TOTAL 0.3 mg/dL (0.2-1.0); CALCIUM 8.9 mg/dL (8.5-10.1); CREATININE 0.8 mg/dL (0.55-1.02); EST CRCL DRUG DOSING (CG) 77.33 mL/min; MAGNESIUM 1.5 mg/dL (1.8-2.4); POTASSIUM,K 3.3 mEq/L (3.5-5.1); PROTEIN TOTAL,TP 6.7 g/dl (6.4-8.2)
[2024-10-16 09:49] VITALS: BP 153/107; PULSE 84
== END 2024-10-16 09:50 | disposition home or self-care (01) ==
LOC: JD.ED 07:06
DX: R07.89 Other chest pain (principal); I10 Essential (primary) hypertension; J45.909 Unspecified asthma, uncomplicated; K21.9 Gastro-esophageal reflux disease without esophagitis; E66.9 Obesity, unspecified; Z68.30 Body mass index [BMI] 30.0-30.9, adult; Z86.16 Personal history of COVID-19; Z96.659 Presence of unspecified artificial knee joint; Z88.0 Allergy status to penicillin; Z88.6 Allergy status to analgesic agent; Z88.2 Allergy status to sulfonamides; Z88.5 Allergy status to narcotic agent; Z91.018 Allergy to other foods; Z91.040 Latex allergy status; Z91.010 Allergy to peanuts; Z79.51 Long term (current) use of inhaled steroids; Z79.52 Long term (current) use of systemic steroids; Z79.899 Other long term (current) drug therapy
CPT/HCPCS: 36415; 71045; 80053; 83735; 84484; 85025; 85379; 93005; 96374; 99285; J2405

== ENCOUNTER 2025-04-18 05:54 | Emergency (ER) | payer BC ==
[2025-04-18] MEDS: diphenhydrAMINE 50 MG/ML SDV IVPUSH ONE (06:14)
[2025-04-18] MEDS: methylPREDNISolone Sodium Succinate 125 MG/2 ML SDV IVPUSH ONE (06:14)
[2025-04-18 07:01] VITALS: BP 163/97; PULSE 68
== END 2025-04-18 08:00 | disposition home or self-care (01) ==
LOC: JD.ED 05:54
DX: T78.40XA Allergy, unspecified, initial encounter (principal); F41.9 Anxiety disorder, unspecified; I10 Essential (primary) hypertension; K21.9 Gastro-esophageal reflux disease without esophagitis; J45.909 Unspecified asthma, uncomplicated; Z88.0 Allergy status to penicillin; Z88.6 Allergy status to analgesic agent; Z91.018 Allergy to other foods; Z91.040 Latex allergy status; Z88.2 Allergy status to sulfonamides; Z91.09 Other allergy status, other than to drugs and biological substances; Z88.5 Allergy status to narcotic agent; Z79.899 Other long term (current) drug therapy; Z79.85 Long-term (current) use of injectable non-insulin antidiabetic drugs; Z86.16 Personal history of COVID-19
CPT/HCPCS: 96374; 96375; 99284; J1200; J2919